=== PATIENT | female | born 1970 | race Caucasian/White ===

== ENCOUNTER 2023-02-02 08:59 | Day surgery (SDC) | payer OTHER ==
[~2023-02-02] VITALS: Ht 170.2 cm; Wt 100.2 kg
[~2023-02-02 08:59] MED LIST: SUMA100T2 PO; TOPI25TA10 PO; ceFAZolin SOD 2 GM in IV 1 EA IV ONE
[2023-02-02] MEDS ORDERED: LR 1,000 ML IV SCH (10:20)
[2023-02-02] MEDS ORDERED: MIDAZOLAM INJ 2MG/2ML VIAL As Ordered ONE (10:55)
[2023-02-02] MEDS ORDERED: fentaNYL 100 MCG/2 ML INJECTION As Ordered ONE (10:55)
[2023-02-02] MEDS ORDERED: KETAMINE HCL 200MG/20ML VIAL As Ordered ONE (10:55)
[2023-02-02] MEDS ORDERED: ONDANSETRON 4MG 2ML VIAL As Ordered ONE (10:58)
[2023-02-02] MEDS ORDERED: ACETAMINOPHEN 1000MG 100ML IV BAG As Ordered ONE (10:58)
[2023-02-02] MEDS ORDERED: LIDOCAINE 2% 100MG/5ML SDV (FOR ANES.) As Ordered ONE (11:30)
[2023-02-02] MEDS ORDERED: LIDOCAINE 1% SDV 30ML VIAL As Ordered ONE (12:07)
[2023-02-02] MEDS ORDERED: BUPIVACAINE/EPIN 0.25% 30ML VIAL As Ordered ONE (12:07)
[2023-02-02] MEDS ORDERED: propofoL 200 MG/20 ML VIAL As Ordered ONE (12:18)
[2023-02-02] MEDS ORDERED: KETOROLAC 60MG 2ML VIAL As Ordered ONE (12:56)
[2023-02-02 14:08] VITALS: BP 104/59
== END 2023-02-02 14:10 | disposition home or self-care (01) ==
LOC: M SDC 08:59
PROVIDERS: ATTEND Surgery
DX: D17.1 Benign lipomatous neoplasm of skin and subcutaneous tissue of trunk (principal); G43.909 Migraine, unspecified, not intractable, without status migrainosus; F12.10 Cannabis abuse, uncomplicated
CPT/HCPCS: 11406; 88304; 93005; J0131; J0690; J1885; J2250; J2405; J3010; S0020